=== PATIENT | female | born 1990 | race Caucasian/White ===

== ENCOUNTER 2020-07-28 15:23 | Observation (INO) | payer MEDICAID ==
[2014-12-10 15:00] VITALS: BP 110/64
[2020-07-28] MEDS ORDERED: IV RINGERS,LACTATED 1000ML 1,000 ML IV SCH (15:30)
[2020-07-28 16:05] LABS: BASO % 0 % (0-3); EOS # 0.1 x10^3/uL (0.0-0.7); EOS % 1 % (0-3); HEMATOCRIT 35.6 % (36.0-47.0); HEMOGLOBIN 12.1 g/dL (12.0-15.5); LYMPH # 1.1 x10^3/uL (1.0-4.8); LYMPH % 13 % (24-48); MEAN CORPUSCULAR HEMOGLOBIN 32 pg (25-35); MEAN CORPUSCULAR HGB CONC 34 g/dL (31-37); MEAN CORPUSCULAR VOLUME 93 fL (79-100); MONO # 0.6 x10^3/uL (0.0-1.1); MONO % 7 % (0-9); NEUT # 7.1 x10^3/uL (1.8-7.7); NEUT % 79 % (31-73); PLATELET COUNT 241 x10^3/uL (140-400); RED BLOOD COUNT 3.82 x10^6/uL (3.50-5.40); RED CELL DISTRIBUTION WIDTH 12.8 % (11.5-14.5)
[2020-07-28 16:07] LABS: BILIRUBIN,URINE NEGATIVE (NEG); CLARITY,URINE CLEAR; COLOR,URINE YELLOW; NITRITE,URINE NEGATIVE (NEG); PROTEIN,URINE NEGATIVE (NEG-TRACE); UROBILINOGEN,URINE 0.2 mg/dL (0.2 mg/dL)
[2020-07-28 16:22] LABS: BACTERIA,URINE 0 /HPF (0-FEW); RBC,URINE 0 /HPF (0-2)
[2020-07-28 16:32] LABS: CALCIUM 8.8 mg/dL (8.5-10.1); CREATININE 0.7 mg/dL (0.6-1.0); POTASSIUM 3.9 mmol/L (3.5-5.1)
[2020-07-28 16:33] LABS: CREATININE,RANDOM URINE 29.6 mg/dL (Not Establ.)
[2020-07-28 16:37] LABS: ALBUMIN 2.6 g/dL (3.4-5.0); ALBUMIN/GLOBULIN RATIO 0.6 (1.0-1.7); TOTAL BILIRUBIN 0.4 mg/dL (0.2-1.0); TOTAL PROTEIN 6.9 g/dL (6.4-8.2)
== END 2020-07-28 17:35 | disposition home or self-care (01) ==
LOC: 3 SO LND 15:23
PROVIDERS: ADMIT Obstetrics & Gynecology; ATTEND Obstetrics & Gynecology
DX: O13.3 Gestational [pregnancy-induced] hypertension without significant proteinuria, third trimester (principal); Z3A.36 36 weeks gestation of pregnancy
CPT/HCPCS: 36415; 80053; 81001; 82570; 84156; 85025; G0378; G0379

== ENCOUNTER 2020-12-07 13:22 | Emergency (ER) | payer MEDICAID ==
[~2020-12-07] VITALS: Ht 157.5 cm; Wt 73.0 kg
[~2020-12-07 13:22] MED LIST: IBUP-1027 PO
[2020-12-07 13:42] LABS: BILIRUBIN,URINE NEGATIVE (NEG); CLARITY,URINE CLEAR; COLOR,URINE YELLOW; NITRITE,URINE NEGATIVE (NEG); PROTEIN,URINE NEGATIVE (NEG-TRACE)
[2020-12-07 13:55] LABS: BACTERIA,URINE 0 /HPF (0-FEW); RBC,URINE 0 /HPF (0-2); WBC,URINE 0 /HPF (0-4)
--- NOTE | 2020-12-07 14:30 | ED.ADGEN ---
Past Medical History Past Medical History: No Pertinent History Past Surgical History: No Surgical History Smoking Status: Never Smoker Alcohol Use: None General Adult EDM: Chief Complaint: VAGINAL BLEEDING HPI: HPI: Patient is a 30 year old female who presents emergency department with complaints of vaginal bleeding since last night. Patient reports that she has saturated 1-1/2 tampon since the onset of the bleeding last night. She denies any irregular vaginal discharge, vaginal odor, vaginal itching prior to the onset of the bleeding. Patient states her last menstrual cycle was on September 28, 2020. She reports that she is taking a total of 5+ tests, the last positive test was at her [facility]'s office 2 weeks ago. She is 5, para 3, with 1 previous that happened approximately 22 weeks gestation. Patient denies any hematuria, increased urinary frequency, dysuria, abdominal pain, pelvic pain, fever, cough, or shortness of breath. She currently denies any pain. She reports that her last child was delivered in July 2020. Review of Systems: Review of Systems: Complete ROS is negative unless otherwise noted in HPI. Allergies: Allergies: Allergies Coded Allergies Type Severity Reaction Last Updated Verified No Known Drug Allergies 12/09/14 No Physical Exam: PE: See Above Constitutional: Well developed, well nourished, no acute distress, non-toxic appearance. [] HENT: Normocephalic, atraumatic, bilateral external ears normal, nose normal. [] Eyes: PERRLA, EOMI, conjunctiva normal, no discharge. [] Neck: Normal range of motion, no stridor. [] Cardiovascular:Heart rate regular rhythm Lungs & Thorax: Respirations even and unlabored, no retractions, no respiratory distress Abdomen: soft, no tenderness Skin: Warm, dry, no erythema, no rash. [] Extremities: No cyanosis, ROM intact, no edema. [] Neurologic: Alert and oriented X 3, no focal deficits noted. [] Psychologic: Affect normal, judgement normal, mood normal. [] Current Patient Data: Labs: Laboratory Tests Test 12/07/20 13:30 12/07/20 13:32 12/07/20 14:30 Urine Collection Type Void Urine Color Yellow Urine Clarity Clear Urine pH 6.0 (<5.0-8.0) Urine Specific [place] >=1.030 (1.000-1.030) Urine Protein Negative mg/dL (NEG-TRACE) Urine Glucose (UA) Negative mg/dL (NEG) Urine Ketones (Stick) Negative mg/dL (NEG) Urine Blood Negative (NEG) Urine Nitrite Negative (NEG) Urine Bilirubin Negative (NEG) Urine Urobilinogen Dipstick 1.0 mg/dL (0.2 mg/dL) Urine Leukocyte Esterase Negative (NEG) Urine RBC 0 /HPF (0-2) Urine WBC 0 /HPF (0-4) Urine Squamous Epithelial Cells Few /LPF Urine Bacteria 0 /HPF (0-FEW) Urine Mucus Marked /LPF POC Urine HCG, Qualitative Hcg negative (Negative) Maternal Serum HCG Beta Subunit 12 mIU/mL (0-5) H Serum Test, Qualitative Positive (NEG) Vital Signs: Vital Signs Date Time Temp Pulse Resp B/P (MAP) Pulse Ox O2 Delivery O2 Flow Rate FiO2 12/07/20 14:41 86 16 115/75 (88) 98 Room Air 12/07/20 13:25 98.7 98.7 EKG: EKG: [] Heart Score: C/O Chest Pain: No Risk Factors: Risk Factors: DM, Current or recent (<one month) smoker, HTN, HLP, family history of CAD, obesity. Risk Scores: Score 0 - 3: 2.5% MACE over next 6 weeks - Discharge Home Score 4 - 6: 20.3% MACE over next 6 weeks - Admit for Clinical Observation Score 7 - 10: 72.7% MACE over next 6 weeks - Early Invasive Strategies Radiology/Procedures: Radiology/Procedures: [] Course & Med Decision Making: Course & Med Decision Making Pertinent Labs and Imaging studies reviewed. (See chart for details) [id number] spoke with Dr. Toure and advised of pt in the ER and lab results. Likely has resulted in miscarriage. Will instruct pt to call his office in the morning for appointment. I discussed the lab results and diagnosis with the patient and encouraged her to call Dr. Toure first thing tomorrow morning for follow up, return to the ER if symptoms worsen or fever develop. Patient verbalized an understanding of home care, medications, follow-up, and return to ED instructions and was in agreement with the plan of care. [] Dragon Disclaimer: Dragon Disclaimer: This electronic medical record was generated, in whole or in part, using a voice recognition dictation system. Departure Departure Impression: Primary Impression: Vaginal bleeding in patient at less than 20 weeks gestation Additional Impression: Incomplete miscarriage Disposition: 01 HOME / SELF CARE / HOMELESS Condition: STABLE Referrals: DONY TOURE Jr, MD Patient Instructions: Incomplete Miscarriage Additional Instructions: Follow-up with Dr. Toure's office, call in the morning to make an appointment. Pelvic rest until evaluated by Dr. Toure, return to the ER if symptoms worsen or fever develops. Attending Signature Attending Signature I have participated in the care of this patient and I have reviewed and agree with all pertinent clinical information above including history, exam, and recommendations. Problem Qualifiers KOBI ENGLE APRN Dec 07, 2020 14:30 SAVITA LINDQUIST DO Dec 07, 2020 18:31
[2020-12-07 14:41] VITALS: BP 115/75
[2020-12-07 14:55] LABS: PREG TEST PT QUAL POSITIVE (NEG)
== END 2020-12-07 16:15 | disposition home or self-care (01) ==
LOC: ER 13:22
DX: O03.4 Incomplete spontaneous abortion without complication (principal); Z3A.20 20 weeks gestation of pregnancy
CPT/HCPCS: 36415; 81001; 81025; 84702; 84703; 99283

== ENCOUNTER → 2021-04-03 | Outpatient (CLI) | payer MEDICAID ==
--- NOTE | 2021-04-03 16:16 | RAD ---
EXAM: OBSTETRIC ULTRASOUND, <14 WEEKS. HISTORY: Dating . COMPARISON: None. FINDINGS: Sonographic evaluation of the pelvis was performed transabdominally. The uterus is anteverted and measures 15 x 10 x 6.6 cm. There is a single intrauterine gestation indio uring 14 weeks 0 days. heart rate is 150 bpm. A yolk sac is no longer visualized. The gestation al sac is regular. The placenta is anterior. There is no subchorionic collection. Neither ovary is visualized currently. There is no adnexal mass. There is no significant free fluid. IMPRESSION: 1. Single intrauterine gestation measuring 14 weeks 0 days. heart rate 150 bpm. Electronically signed by: Alba Sahu MD (04/03/2021 4:13 PM) [id number]
== END ==
LOC: US 14:33
PROVIDERS: ATTEND Obstetrics & Gynecology
DX: Z34.91 Encounter for supervision of normal pregnancy, unspecified, first trimester (principal); Z3A.14 14 weeks gestation of pregnancy
CPT/HCPCS: 76801

== ENCOUNTER 2021-09-25 03:09 | Inpatient (IN) | payer MEDICAID ==
[~2021-09-25] VITALS: Ht 160 cm; Wt 81.7 kg
[2021-09-25] MEDS ORDERED: IV RINGERS,LACTATED 1000ML 1,000 ML IV PRN (03:15)
[2021-09-25 03:44] LABS: BILIRUBIN,URINE NEGATIVE (NEG); CLARITY,URINE CLOUDY; COLOR,URINE YELLOW; NITRITE,URINE NEGATIVE (NEG); PROTEIN,URINE NEGATIVE (NEG-TRACE)
[2021-09-25 03:55] LABS: RBC,URINE 0 /HPF (0-2)
[2021-09-25 03:56] LABS: BACTERIA,URINE MANY /HPF (0-FEW); WBC,URINE >40 /HPF (0-4)
[2021-09-25 04:07] VITALS: BP 133/82
[2021-09-25] MEDS ORDERED: TERBUTALINE 1 MG/ML VIAL. SQ PRN (04:15)
[2021-09-25] MEDS ORDERED: LIDOCAINE 1% PF 30 ML VIAL. INJ PRN (04:15)
[2021-09-25] MEDS ORDERED: 0.9 % SODIUM CHLORIDE 10 ML DISP.SYRIN. IV PRN ×2 (04:15→13:00)
[2021-09-25] MEDS ORDERED: OXYTOCIN 30 UNIT/500 ML PREMIX 500 ML IV PRN ×2 (04:15→13:00)
[2021-09-25] MEDS ORDERED: IV RINGERS,LACTATED 1000ML 1,000 ML IV SCH ×2 (04:15→14:00)
[2021-09-25] MEDS ORDERED: ACETAMINOPHEN 325 MG TABLET. PO PRN ×2 (04:15→13:00)
[2021-09-25] MEDS ORDERED: BUTORPHANOL 2 MG/ML VIAL. IVP PRN ×2 (04:15)
[2021-09-25 04:59] LABS: BASO # 0.1 x10^3/uL (0.0-0.2); BASO % 1 % (0-3); EOS # 0.1 x10^3/uL (0.0-0.7); EOS % 1 % (0-3); HEMATOCRIT 35.7 % (36.0-47.0); HEMOGLOBIN 12.4 g/dL (12.0-15.5); LYMPH # 1.1 x10^3/uL (1.0-4.8); LYMPH % 10 % (24-48); MEAN CORPUSCULAR HEMOGLOBIN 31 pg (25-35); MEAN CORPUSCULAR HGB CONC 35 g/dL (31-37); MEAN CORPUSCULAR VOLUME 90 fL (79-100); MONO # 0.7 x10^3/uL (0.0-1.1); MONO % 6 % (0-9); NEUT % 82 % (31-73); PLATELET COUNT 201 x10^3/uL (140-400); RED BLOOD COUNT 3.95 x10^6/uL (3.50-5.40); RED CELL DISTRIBUTION WIDTH 13.6 % (11.5-14.5); WHITE BLOOD COUNT 10.9 x10^3/uL (4.0-11.0)
[2021-09-25] MEDS ORDERED: ROPIVacaine 0.2% PF 10 ML VIAL. ONE ×2 (07:29→07:40)
[2021-09-25] MEDS ORDERED: ePHEDrine PF IN SALINE 50 MG/10 ML SYRINGE. IV PRN (07:30)
[2021-09-25] MEDS ORDERED: L&D EPIDURAL SYRINGE 50 ML EPID PRN (07:30)
[2021-09-25] MEDS ORDERED: ONDANSETRON PF 4 MG/2 ML VIAL. IV PRN (07:30)
[2021-09-25] MEDS ORDERED: NALOXONE 0.4 MG/ML VIAL. IV PRN (07:30)
[2021-09-25] MEDS ORDERED: IV RINGERS,LACTATED 1000ML 1,000 ML IV ONE (07:30)
[2021-09-25] MEDS ORDERED: fentaNYL PF VIAL 100 MCG/2 ML VIAL EPID ONE (07:30)
[2021-09-25] MEDS ORDERED: L&D EPIDURAL 50 ML SYRINGE. ONE (07:40)
[2021-09-25] MEDS ORDERED: OXYTOCIN PREMIX 30 UNIT/500 ML NS BAG. IV ONE (08:30)
--- NOTE | 2021-09-25 09:03 | PDOC1 ---
[employer] [facility] H&P Date of Admission: Date of Admission: Sep 25, 2021 at 04:01 History of Present Illness: EDC: 10/02/21 LMP: 12/26/20 31y @ 39.0 by L=12 presents to L&D with ctxs. The pts cervical exam progressed from 3 cm to 4 cm so she was subsequently admitted. The pt remained 4 cm for some time so she was started on Pit for augmentation. The pts was relatively uncomplicated, but over the last couple wk her BPs have been elevated. PMH: Back pain PSH: Exploratory surgery Lisseth Dr Coffman 11/2015 Meds: Fe, PNV, Tylenol All: Keflex: hives OBHx: 3 x TSVD, 1 x AB. miscarriages 1. SH: 1/2 PPD, no EtOH FH: noncontributory Medications: Meds: Current Medications Medications (Trade) Dose Ordered Sig/Kaylan Route PRN Reason Start Time Stop Time Status Last Admin Dose Admin Ringer's Solution 1,000 ml @ 125 mls/hr Q8H PRN IV hydration 09/25/21 03:15 09/25/21 04:51 Butorphanol Tartrate (Stadol) 2 mg PRN Q1HR PRN IVP Severe labor pain 09/25/21 04:15 09/25/21 04:51 Ringer's Solution 1,000 ml @ 0 mls/hr Q0M ONCE IV 09/25/21 07:30 09/25/21 07:31 DC 09/25/21 07:46 Allergies: Coded Allergies: cephalexin (Verified Allergy, Intermediate, Unknown, 09/25/21) Physical Exam: Vital Signs: Vital Signs Date Time Temp Pulse Resp B/P (MAP) Pulse Ox O2 Delivery O2 Flow Rate FiO2 09/25/21 04:07 98.7 105 22 133/82 (99) 97 Room Air 98.7 PE: GENERAL: No apparent distress. Alert and oriented. HEENT: Head normocephalic, atraumatic. NECK: Supple LUNGS: Clear to auscultation. HEART: RRR, S1, S2 present, pulses intact ABDOMEN: Soft, positive bowel sounds. EXTREMITIES: No cyanosis or edema. NEUROLOGIC: Normal speech, normal tone PSYCHIATRIC: Normal affect, normal mood. SKIN: No ulceration. FHT: 120s +acels/no decels/mLTV [place]: 5-6 min SVE: 470/-3 Labs: Laboratory Tests Test 09/25/21 03:30 09/25/21 04:00 09/25/21 04:40 Urine Collection Type Unknown Urine Color Yellow Urine Clarity Cloudy Urine pH 7.0 (<5.0-8.0) Urine Specific [place] 1.010 (1.000-1.030) Urine Protein Negative mg/dL (NEG-TRACE) Urine Glucose (UA) Negative mg/dL (NEG) Urine Ketones (Stick) Negative mg/dL (NEG) Urine Blood Negative (NEG) Urine Nitrite Negative (NEG) Urine Bilirubin Negative (NEG) Urine Urobilinogen Dipstick 1.0 mg/dL (0.2 mg/dL) Urine Leukocyte Esterase Large (NEG) Urine RBC 0 /HPF (0-2) Urine WBC >40 /HPF (0-4) Urine Squamous Epithelial Cells Many /LPF Urine Bacteria Many /HPF (0-FEW) SARS-CoV-2 Antigen (Rapid) Negative (NEGATIVE) White Blood Count 10.9 x10^3/uL (4.0-11.0) Red Blood Count 3.95 x10^6/uL (3.50-5.40) Hemoglobin 12.4 g/dL (12.0-15.5) Hematocrit 35.7 % (36.0-47.0) L Mean Corpuscular Volume 90 fL (79-100) Mean Corpuscular Hemoglobin 31 pg (25-35) Mean Corpuscular Hemoglobin Concent 35 g/dL (31-37) Red Cell Distribution Width 13.6 % (11.5-14.5) Platelet Count 201 x10^3/uL (140-400) Neutrophils (%) (Auto) 82 % (31-73) H Lymphocytes (%) (Auto) 10 % (24-48) L Monocytes (%) (Auto) 6 % (0-9) Eosinophils (%) (Auto) 1 % (0-3) Basophils (%) (Auto) 1 % (0-3) Neutrophils # (Auto) 9.0 x10^3/uL (1.8-7.7) H Lymphocytes # (Auto) 1.1 x10^3/uL (1.0-4.8) Monocytes # (Auto) 0.7 x10^3/uL (0.0-1.1) Eosinophils # (Auto) 0.1 x10^3/uL (0.0-0.7) Basophils # (Auto) 0.1 x10^3/uL (0.0-0.2) Laboratory Tests 09/25/21 04:40 Laboratory Tests 09/25/21 04:40 Assessment & Plan: A/P 31y @ 39.0 by L=12 1.) Latent vs active labor started on Pit for augmentation, AROM/cl 2.) GHTN BPs nml to mild, no s/s of preeclampsia 3.) Tob use 4.) DPS - consent signed 06/23/21 5.) Keflex All 6.) Never had GTT 7.) TDAP given 08/18/21 8.) Fetus cat I FHT 9.) GBS neg SUZY MONTERROSO MD Sep 25, 2021 09:03
--- NOTE | 2021-09-25 12:45 | PDOC4 ---
VAGINAL DELIVERY DATE DATE: 09/25/21 TIME: 12:44 TIME Patient delivered a viable female over intact perineum at 1233. Wt 6 lb 8.1 oz. Apgars 9/10. Placenta delivered spontaneously, intact with 3VC. No lacerations noted. Good hemostasis noted. 20 U of Pit given with IVF. EBL 200 cc. WEIGHT Weight [ ] SUZY MONTERROSO MD Sep 25, 2021 12:45
[2021-09-25] MEDS ORDERED: HYDROCORTISONE 1% TOPICAL OINTMENT 30GM TUBE. TP PRN (13:00)
[2021-09-25] MEDS ORDERED: SIMETHICONE 80 MG TAB.CHEW PO PRN (13:00)
[2021-09-25] MEDS ORDERED: MAG HYDROX/ALUMINUM HYD/SIMETH 30 ML ORAL.SUSP PO PRN (13:00)
[2021-09-25] MEDS ORDERED: BENZOCAINE 20% TOPICAL AEROSOL SPRAY 57GM CAN. TP PRN (13:00)
[2021-09-25] MEDS ORDERED: DOCUSATE SODIUM 100 MG CAPSULE. PO PRN (13:00)
[2021-09-25] MEDS ORDERED: MMR per PROTOCOL. MC PRN (13:00)
[2021-09-25] MEDS ORDERED: MAGNESIUM HYDROXIDE 2,400 MG/30 ML ORAL.SUSP. PO PRN (13:00)
[2021-09-25] MEDS ORDERED: ZOLPIDEM 5 MG TABLET. PO PRN (13:00)
[2021-09-25] MEDS ORDERED: TDaP (BOOSTRIX) per PROTOCOL. MC PRN (13:00)
[2021-09-25] MEDS ORDERED: diphenhydrAMINE HCL 25 MG CAPSULE PO PRN (13:00)
[2021-09-25] MEDS ORDERED: PHENYLEPH/MINERAL OIL/PETROLAT RECTAL OINTMENT TUBE. RC PRN (13:00)
[2021-09-25] MEDS ORDERED: ROCURONIUM 100 MG/10 ML VIAL. ONE (13:49)
[2021-09-25] MEDS ORDERED: ROCURONIUM 50 MG/5 ML VIAL. ONE (13:49)
[2021-09-25] MEDS ORDERED: ONDANSETRON PF 4 MG/2 ML VIAL. ONE (13:50)
[2021-09-25] MEDS ORDERED: PROPOFOL 10 MG/ML (20ML) VIAL. IV ONE (13:50)
[2021-09-25] MEDS ORDERED: KETOROLAC 30 MG/ML VIAL. ONE (13:51)
[2021-09-25] MEDS ORDERED: DEXAMETHASONE SOD PHOS 4 MG/ML VIAL ONE (13:51)
[2021-09-25] MEDS ORDERED: LIDOCAINE 2% PF 5 ML VIAL. ONE (13:51)
[2021-09-25] MEDS ORDERED: fentaNYL PF VIAL 100 MCG/2 ML VIAL ONE (13:54)
[2021-09-25] MEDS ORDERED: PRENATAL MULTIVITAMIN TABLET. PO SCH (14:00)
[2021-09-25] MEDS ORDERED: fentaNYL PF VIAL 100 MCG/2 ML VIAL IVP PRN ×2 (14:00)
[2021-09-25] MEDS ORDERED: HYDROmorphone 2 MG/ML INJ. IVP PRN (14:00)
[2021-09-25] MEDS ORDERED: PROCHLORPERAZINE 10 MG/2 ML VIAL. IVP PRN (14:00)
[2021-09-25] MEDS ORDERED: SUGAMMADEX SODIUM 200 MG/2 ML VIAL. IVP ONE (14:00)
[2021-09-25] MEDS: MORPHINE SULFATE 2 MG/ML INJ. IVP PRN ×4 (15:14→15:44)
--- NOTE | 2021-09-25 15:14 | PDOC4 ---
OPERATIVE NOTE: PreOp Dx: 1.) DPS, 2.) Multiparity PostOp Dx: same Procedure: PPBTL Surgeon: Taylor Monterroso Anesthesia: GETA EBL: 20 cc Fluids: 600 cc Findings: nml tubes and ovary Complications: none Pathology: bilateral tubal segments SUZY MONTERROSO MD Sep 25, 2021 15:14
[2021-09-25] MEDS ORDERED: MORPHINE SULFATE 2 MG/ML INJ. ONE ×2 (15:20→15:54)
[2021-09-25 16:15] VITALS: BP 131/78
[2021-09-25 16:30] VITALS: BP 131/78
[2021-09-25 17:00] VITALS: BP 122/75
[2021-09-25] MEDS ORDERED: FERROUS SULFATE 325 MG TABLET. PO SCH (17:00)
[2021-09-25] MEDS: oxyCODONE/APAP 5/325 1 TAB TABLET PO PRN ×2 (17:44→22:57)
--- NOTE | 2021-09-25 18:04 | OP ---
DATE OF SURGERY: 09/25/2021 PREOPERATIVE DIAGNOSES: 1. Desires permanent sterilization. 2. Multiparity. POSTOPERATIVE DIAGNOSES: 1. Desires permanent sterilization. 2. Multiparity. PROCEDURE: bilateral tubal ligation. SURGEON: Chirag Noyola MD ANESTHESIA: General endotracheal intubation. ESTIMATED BLOOD LOSS: 20 mL FLUIDS: 600 mL FINDINGS: Normal tubes and ovaries. COMPLICATIONS: None. PATHOLOGY: Bilateral tubal segments. DESCRIPTION OF PROCEDURE: The patient was taken to the operating room where general endotracheal intubation was obtained without difficulty. The patient was prepped and draped in normal sterile fashion. A small transverse infraumbilical skin incision was made with a scalpel and scalpel was then carried down to underlying layer of fascia. The fascia was then nicked in the midline and the fascial incision was then extended with Aparicio scissors. At that point, the peritoneum was then identified and grasped and entered sharply with Metzenbaum scissors. Right tube was then followed out to the fimbria. Charo clamp was used to grasp the tube approximately 2 cm from the cornual region. A 3 cm segment of the tube was then ligated. First by placing a free tie of 0 gut and then placing a second tie just superior to this one. The tube was then excised superiorly to the second tie. The tube was then sent to pathology. The tubal segment was made hemostatic with the Bovie. At that point, the tube was returned to the abdomen. Attention was then turned to the left tube, which was followed out to the fimbria. Tube was then grasped approximately 3 cm from the cornual region. A 3 cm segment of the tube was then excised in similar fashion, first by placing 2 free ties of 0 plain gut one superior to the other and then excising superiorly to the second tie with Metzenbaum scissors. The edges were then made hemostatic with the Bovie. The tube was then returned to the abdomen. The fascia was then closed with 0 Vicryl in a running fashion. The skin was then closed with 3-0 Monocryl in a subcuticular manner. The patient tolerated the procedure well. Sponges, laps and needles were correct x 2. The patient was taken to recovery room in stable condition. NIKOLE DR: John TID: [id number]
[2021-09-25 19:40] VITALS: BP 112/55
[2021-09-25] MEDS: IBUPROFEN 400 MG TABLET. PO PRN (19:40)
[2021-09-25 22:57] VITALS: BP 132/83
[2021-09-26 03:00] VITALS: BP 124/76
[2021-09-26 05:01] LABS: HEMATOCRIT 33.1 % (36.0-47.0); HEMOGLOBIN 11.1 g/dL (12.0-15.5); RED BLOOD COUNT 3.59 x10^6/uL (3.50-5.40); RED CELL DISTRIBUTION WIDTH 13.8 % (11.5-14.5); WHITE BLOOD COUNT 12.3 x10^3/uL (4.0-11.0)
[2021-09-26 06:15] VITALS: BP 126/82
[2021-09-26] MEDS: IBUPROFEN 400 MG TABLET. PO PRN ×2 (06:18→14:54)
[2021-09-26] MEDS: oxyCODONE/APAP 5/325 1 TAB TABLET PO PRN (09:13)
[2021-09-26 09:15] VITALS: BP 123/81
[2021-09-26] MEDS ORDERED: IBUP-1027 PO (10:07)
[2021-09-26] MEDS ORDERED: SIME80TA13 PO (10:07)
[2021-09-26] MEDS ORDERED: OXYC1TAB15 PO (10:07)
[2021-09-26] MEDS ORDERED: DOCU-109 PO (10:07)
[2021-09-26 16:00] VITALS: BP 129/77
--- NOTE | 2021-09-26 16:00 | NUR ---
Pt. dismissed per w/c in stable condition accompanied by nursing personnel.
== END 2021-09-26 16:00 | disposition home or self-care (01) | DRG 798 ==
LOC: 3 SO LND 03:09 → OBSVTOIN 04:01 → 3 SO LND 13:53
PROVIDERS: ADMIT Obstetrics & Gynecology; ATTEND Obstetrics & Gynecology
PROC: 0UB70ZZ Excision of Bilateral Fallopian Tubes, Open Approach (ICD-10-PCS; 2021-09-25)
PROC: 10907ZC Drainage of Amniotic Fluid, Therapeutic from Products of Conception, Via Natural or Artificial Opening (ICD-10-PCS; 2021-09-25)
PROC: 10E0XZZ Delivery of Products of Conception, External Approach (ICD-10-PCS; principal; 2021-09-25 14:00)
DX: O13.4 Gestational [pregnancy-induced] hypertension without significant proteinuria, complicating childbirth (principal); Z37.0 Single live birth; O99.334 Smoking (tobacco) complicating childbirth; F17.210 Nicotine dependence, cigarettes, uncomplicated; Z20.822 Contact with and (suspected) exposure to COVID-19; Z3A.39 39 weeks gestation of pregnancy; Z30.2 Encounter for sterilization; Z88.1 Allergy status to other antibiotic agents
CPT/HCPCS: 36415; 81001; 85025; 85027; 86592; 86850; 86900; 86901; 87086; 87426; A4364; A4452; A4930; A6219; A6258; C1755; G0379; J0595; J1100; J1885; J2270; J2405; J2590; J2704; J2795; J3010; J3490; J7120; U0003; U0005; G0378